=== PATIENT | male | born 1965 | race Caucasian/White ===

== ENCOUNTER → 2020-04-30 11:46 | Outpatient (BNVA) | payer OTHER, SELFPAY | PROVIDERS: PCP Internal Medicine; Visit Provider Urology | DX: Z76.89 Persons encountering health services in other specified circumstances (principal) ==

== ENCOUNTER 2020-06-03 09:58 | Outpatient (REF) | payer OTHER, SELFPAY ==
[2020-06-03 14:22] LABS: Urine Cytology See Pathology rpt
== END 2020-06-03 09:59 | disposition home or self-care (01) ==
LOC: CF 09:58
PROVIDERS: PCP Internal Medicine; Visit Provider Urology
DX: C67.9 Malignant neoplasm of bladder, unspecified (principal)
CPT/HCPCS: 52000; 52310; 81002; 88112

== ENCOUNTER → 2021-01-21 14:06 | Outpatient (BNVA) | payer OTHER, SELFPAY | PROVIDERS: PCP Internal Medicine; Visit Provider Urology | DX: C67.9 Malignant neoplasm of bladder, unspecified (principal) | CPT/HCPCS: 52000; 81002 ==

== ENCOUNTER 2021-10-07 10:17 | Outpatient (REF) | payer OTHER, SELFPAY ==
[2021-10-07 16:33] LABS: Urine Cytology See Pathology rpt
== END 2021-10-07 10:18 | disposition home or self-care (01) ==
LOC: HO.LAB 10:17
PROVIDERS: Visit Provider Urology
DX: C67.9 Malignant neoplasm of bladder, unspecified (principal)
CPT/HCPCS: 52000; 88112

== ENCOUNTER 2022-11-24 10:07 | Outpatient (AMB) | payer OTHER, SELFPAY ==
--- NOTE | 2022-11-24 10:12 | MHC.OFFVIS ---
Intake Intake Visit Reasons: 1 year follow up Cysto Intake Note: Patient is present for Cystoscopy Urology Med: Tamsulosin Antibiotic Allergy: Penicillins Blood Thinner: None Disposable Cystoscope LOT: [id number] EXP: 09/20/2024 Allergies Penicillins [PENICILLINS] Allergy (Unknown, Verified 11/24/22 10:14) UNKNOWN HPI HPI Comments History of Present Illness Details Favio is a pleasant male. He is a patient of Dr. Suarez. He is seen for the following urologic conditions - bladder cancer Clear Continue yearly cystoscopy Bladder Cancer: TURBT 10/19 noninvasive low-grade gemcitabine induction after partial BCG induction Bladder cancer was initially diagnosed during evaluation for microscopic hematuria - 06/20 Dr Kamara. Bladder intervention(s) performed -TURBT - 07/18 , TURBT, Ta noninvasive papillary carcinoma, Papillary lesion of low grade malignant - 10/19 TURBT TA noninvasive low-grade - Immunotherapy - 09/17 BCG #3 as partial induction - 11/18 Gencitabine 6 week induction Cystoscopy - 02/18 NAD - 06/22 NAD, 01/20 NAD, 10/21 NAD Cytology 06/22 atypical Imaging - 07/18 CT urogram normal Associated symptoms hematuria Yes urge No frequency No nocturia > 2 No dysuria No PFSH Medical History Bladder diverticulum Incomplete emptying of bladder Malignant neoplasm of lateral wall of urinary bladder Microscopic hematuria Family History Father No problems noted. Mother No problems noted. Review of Systems Const Denies chills and Denies fever(s) Card Reports no additional complaints and Denies syncope Resp Denies cough GI Denies abdominal pain and Denies heartburn Reports as per HPI and Denies change in libido Neuro Denies syncope Psych Denies change in libido Endo Denies change in libido Physical Exam Const General: cooperative, healthy appearing, comfortable and no acute distress Orientation/consciousness: patient oriented x3 HEENT Face and sinus: Yes normal facial exam Mouth: moist mucous membranes Neck Neck: Yes normal visual inspection, Yes full ROM and Yes trachea midline Chest Chest palpation & inspection: normal inspection of the chest Resp Effort & Inspection: normal respiratory effort, able to speak in complete sentences and no respiratory distress GI Inspection: Yes normal to inspection Back/Spine/Pelvis Cervical Spine: normal cervical lordosis Thoracic/Lumbar Spine: thoracic and lumbar spine normal to inspection Skin General skin exam: no rashes or lesions noted Neuro General: patient oriented x3, gait normal, tone normal and moves all extremities Extrem General: Yes normal to inspection and Yes capillary refill normal Office Procedures Cystoscopy Consent Discussed risk and benefit or proposed procedure with the patient. Information consent for procedure given to the patient. Discussed technical aspects, risks, benefits and alternatives in full. Addressed all of the patient's questions and concerns regarding the procedure. The patient demonstrated knowledge and understanding. They wish to proceed with this procedure. Preparation The patient was prepped in the usual manner. A patient intake coordinator was present and in the room. Genitalia was prepped with betadine solution in a sterile manner. Lidocaine Jelly 2% was placed into the urethra and 16Fr flexible Olympus cystoscope was inserted into the meatus after adequate lubrication. Procedure Meatus circumcised Urethra anterior posterior urethra normal Prostatic Urethra unremarkable Bladder examination with retroflexion of cystoscope Bladder Orifices normal shape and position Bladder Capacity normal Trabeculations grade 1 Cellule Formation - Diverticulum Formation - Mucosal Erythema - Bladder Tumor - [id number] Procedure code (CPT) selection complete Office Meds lidocaine HCl 2 % mucosal jelly in applicator Performing Provider: Todd Kamara MD Performing Location: [facility] [place] [facility] Administered by: SUSAN Leal on 11/24/22 10:26 Dose Route Admin Location Dispensed Lot Number Expiration Date [facility] [place] Color Buffer 10 mL intra-urethral 10 mL nitrofurantoin monohydrate/macrocrystals 100 mg capsule Performing Provider: Todd Kamara MD Performing Location: [facility] [place] Administered by: SUSAN Leal on 11/24/22 10:26 Dose Route Admin Location Dispensed Lot Number Expiration Date [place] Color Buffer 100 mg PO 1 cap Results AMB Urinalysis, Automated UA Leukoctes 0 Alphonso/uL Last Edit by SUSAN Leal on 11/24/22 10:27 UA Nitrite Negative Last Edit by SUSAN Leal on 11/24/22 10:27 UA Urobilinogen 0.2 mg/dL Last Edit by SUSAN Leal on 11/24/22 10:27 UA Protein 0 mg/dL Last Edit by Marie Heard, RMA on 11/24/22 10:27 UA pH 6.0 Last Edit by Marie Heard, RMA on 11/24/22 10:27 UA Blood 0 Kristian/uL Last Edit by Marie Heard, RMA on 11/24/22 10:27 UA Specific [place] 1.015 Last Edit by Marie Heard, RMA on 11/24/22 10:27 UA Ketone Negative Last Edit by Marie Heard RMA on 11/24/22 10:27 UA Bilirubin 0 mg/dL Last Edit by Marie Heard, RMA on 11/24/22 10:27 UA Glucose 0 mg/dL Last Edit by Marie Heard, RMA on 11/24/22 10:27 Results Reviewed Results Reviewed: Laboratory Last Values Urine pH (Auto) 6.0 11/24/22 10:24 Specific [place] (Auto) 1.015 11/24/22 10:24 Urine Protein (Auto) 0 mg/dL 11/24/22 10:24 Glucose (UA)(Auto) 0 mg/dL 11/24/22 10:24 Urine Ketones (Auto) Negative 11/24/22 10:24 Urine Blood (Auto) 0 Kristian/uL 11/24/22 10:24 Urine Nitrite (Auto) Negative 11/24/22 10:24 Urine Bilirubin (Auto) 0 mg/dL 11/24/22 10:24 Urine Urobilinogen (Auto) 0.2 mg/dL 11/24/22 10:24 Leukocyte Esterase (Auto) 0 Alphonso/uL 11/24/22 10:24 Assessment & Plan Assessment & Plan (1) Bladder cancer: Comment: 2019 low grade Code(s): C67.9 - Malignant neoplasm of bladder, unspecified Plan Yearly follow-up Orders: Orders AMB Urinalysis Automated 11/24/22 Z13.9 - Encounter for screening, unspecified AMB Cystoscopy 11/24/22 C67.9 - Malignant neoplasm of bladder, unspecified Urine Cytology 11/24/22 C67.9 - Malignant neoplasm of bladder, unspecified Patient Instructions: Imaging studies, laboratory and physical exam results were discussed and reviewed in detail. No major barriers to patient understanding were identified. An opportunity to ask questions regarding the treatment plan was provided. All questions were answered. The patient expressed understanding and agreement with the above treatment plan. The patient is aware they should contact our office by phone for worsening of their current condition or the appearance of new urologic symptoms. Compliance is encouraged with any medications and followup testing that is ordered. It is a privilege to participate in the urologic care of your patient. If you have any questions or concerns regarding treatment for the above conditions, or other urologic issues, please do not hesitate to contact me. The office telephone contact is [phone]. This note is constructed using voice recognition software. While every effort has been made to ensure accuracy cash applications manager errors may have been included. Yours sincerely, Dr Todd Kamara MD, [facility] - Urology Providers of Expert, Compassionate Care for the Genitourinary System Coding Level of Care Code Est Pt Level 4 (06734) Diagnoses Bladder cancer C67.9 CPT Codes Cystoscopy - CPT: 87616-[id number] ([id number])
== END 2022-11-24 11:40 | disposition home or self-care (01) ==
PROVIDERS: Visit Provider Urology
DX: C67.9 Malignant neoplasm of bladder, unspecified (principal)
CPT/HCPCS: 52000

== ENCOUNTER 2022-11-24 10:07 | Outpatient (REF) | payer OTHER, SELFPAY ==
[2022-11-24 16:51] LABS: Urine Cytology See Pathology rpt
== END 2022-11-24 10:08 | disposition home or self-care (01) ==
LOC: HO.LAB 10:07
PROVIDERS: Visit Provider Urology
DX: C67.9 Malignant neoplasm of bladder, unspecified (principal)
CPT/HCPCS: 52000; 88112